=== PATIENT | female | born 1955 | race African-American/Black ===

== ENCOUNTER → 2016-12-17 | Outpatient (CLI) | payer BC ==
[~2016-12-17] MED LIST: ATEN25TA PO; ATOR20TA PO; CITA20TA5 PO; LISI1TAB3 PO; MIRT15TA4 PO; OMEP-110 PO; ONDA4TAB10 PO; TRAM-47 PO
== END | disposition home or self-care (01) ==
LOC: CFH 10:02
PROVIDERS: ATTEND Family Medicine
DX: Z12.31 Encounter for screening mammogram for malignant neoplasm of breast (principal)
CPT/HCPCS: G0202

== ENCOUNTER → 2017-12-18 | Outpatient (CLI) | payer BC ==
[~2017-12-18] MED LIST changes: -CITA20TA5 PO; +CITA20TA6 PO
== END | disposition home or self-care (01) ==
LOC: CFH 11:57
PROVIDERS: ATTEND Family Medicine
DX: Z12.31 Encounter for screening mammogram for malignant neoplasm of breast (principal)
CPT/HCPCS: 77063; 77067

== ENCOUNTER 2017-12-31 16:57 | Observation (INO) | payer BC ==
[~2017-12-31] VITALS: Ht 162.6 cm; Wt 80.4 kg
[2017-12-31] MEDS ORDERED: ASPIRIN 81 MG TABLET CHEW ONE (17:24)
[2017-12-31] MEDS ORDERED: ASPIRIN 81 MG TABLET CHEW PO ONE (17:30)
[2017-12-31] MEDS ORDERED: SODIUM CHLORIDE FLUSH 10ML SYR IVF ONE (17:30)
[2017-12-31] MEDS ORDERED: METF500T27 PO (17:44)
[2017-12-31 17:50] LABS: CHLORIDE 106 mmol/L (98-107)
[2017-12-31 17:56] LABS: MEAN CORPUSCULAR HEMOGLOBIN 30.2 pg (27.0-34.8); MEAN CORPUSCULAR HGB CONC 32.8 g/dL (32.4-35.8); MEAN CORPUSCULAR VOLUME 92.1 fL (80-100); MEAN PLATELET VOLUME 8.1 fL (7.4-10.4); PLATELET COUNT 310 x10^3/uL (130-400); RED CELL DISTRIBUTION WIDTH 14.2 % (9.6-15.2)
[2017-12-31 17:58] LABS: MD YES
[2017-12-31 17:59] LABS: ALANINE AMINOTRANSFERASE 22 U/L (12-78); ALKALINE PHOSPHATASE 92 U/L (45-117); ANION GAP 10 mmol/L (5-15); BILIRUBIN,TOTAL 0.4 mg/dL (0.2-1.0); CALCIUM 9.7 mg/dL (8.5-10.1); CREATININE 1.15 mg/dL (0.55-1.02); TOTAL PROTEIN 8.2 g/dL (6.4-8.2); TROPONIN I < 0.015 ng/mL (0.000-0.045)
[2017-12-31 18:03] LABS: <PLATELET ESTIMATE> ADEQUATE; <PLT MORPHOLOGY> NORMAL PLT MORPH; <RBC MORPHOLOGY> NORMAL; EOS#(MANUAL) 0.07 x10^3/uL (0.0-0.4); EOS% (MANUAL) 1 % (1-7); LYMPH#(MANUAL) 2.07 x10^3/uL (1-3.4); LYMPHS% (MANUAL) 28 % (22-44); MONOS#(MANUAL) 0.52 x10^3/uL (0.3-2.7); MONOS% (MANUAL) 7 % (2-9); SEG#(MANUAL) 4.74 x10^3/uL (1.8-6.8); SEGS% (MANUAL) 64 % (42-75)
[2017-12-31] MEDS ORDERED: MORPHINE SULFATE 4 MG/ML, 1ML ONE (19:46)
[2017-12-31] MEDS ORDERED: ONDANSETRON ODT 4 MG ONE (19:46)
[2017-12-31] MEDS ORDERED: MORPHINE SULFATE 4 MG/ML, 1ML IVPush ONE (20:00)
[2017-12-31] MEDS ORDERED: ONDANSETRON ODT 4 MG PO ONE (20:00)
[2017-12-31] MEDS ORDERED: OMNIPAQUE 350 MG/ML, 100ML BOTTLE ONE (20:09)
[2017-12-31] MEDS ORDERED: SODIUM CHLORIDE 0.9% 1,000 ML IV SCH (21:48)
[2017-12-31] MEDS ORDERED: DOCUSATE 100 MG CAPSULE PO PRN (22:00)
[2017-12-31] MEDS ORDERED: LABETALOL 5MG/ML, 20ML IVPush PRN (22:00)
[2017-12-31] MEDS ORDERED: hydrALAzine 20 MG/ML, 1ML IVPush PRN (22:00)
[2017-12-31] MEDS ORDERED: POLYETHYLENE GLYCOL 17 GM PACKET PO PRN (22:00)
[2017-12-31] MEDS ORDERED: NITROGLYCERIN 0.4 MG BOTTLE (25 TABS) SL PRN (22:00)
[2017-12-31] MEDS ORDERED: HYDROcodone/APAP 5/325 TABLET PO PRN (22:00)
[2017-12-31] MEDS ORDERED: ONDANSETRON ODT 4 MG PO PRN (22:00)
[2017-12-31] MEDS ORDERED: morphine SULFATE 10 MG/ML, 1ML IVPush PRN (22:00)
[2017-12-31] MEDS ORDERED: ONDANSETRON 2MG/ML, 2ML IVPush PRN (22:00)
[2017-12-31] MEDS ORDERED: BISACODYL 10 MG SUPP PR PRN (22:00)
[2017-12-31] MEDS ORDERED: PROMETHAZINE 25 MG/ML, 1ML IM PRN (22:00)
[2017-12-31] MEDS ORDERED: POTASSIUM CHLORIDE 20 MEQ TAB.ER.PRT PO ONE (22:30)
[2017-12-31 22:38] VITALS: BP 116/69
[2017-12-31] MEDS: HEPARIN 5,000 UNITS/ML, 1ML SQ SCH (23:09)
[2018-01-01 01:05] VITALS: BP 114/71
[2018-01-01 02:18] LABS: BASOPHILS # (AUTO) 0.04 x10^3/uL (0-0.1); BASOPHILS % (AUTO) 1 % (0-1); EOSINOPHILS # (AUTO) 0.11 x10^3/uL (0-0.4); EOSINOPHILS % (AUTO) 2 % (1-7); LYMPHOCYTES % (AUTO) 39 % (22-44); MD NO; MEAN CORPUSCULAR HEMOGLOBIN 30.9 pg (27.0-34.8); MEAN CORPUSCULAR VOLUME 93.5 fL (80-100); MEAN PLATELET VOLUME 7.9 fL (7.4-10.4); MONOCYTES # (AUTO) 0.38 x10^3/uL (0.2-0.8); MONOCYTES % (AUTO) 7 % (2-9); NEUTROPHILS # (AUTO) 2.78 x10^3/uL (1.8-6.8); NEUTROPHILS % (AUTO) 51 % (42-75); PLATELET COUNT 300 x10^3/uL (130-400); RED BLOOD COUNT 3.68 x10^6/uL (3.82-5.3); RED CELL DISTRIBUTION WIDTH 13.9 % (9.6-15.2)
[2018-01-01 02:30] LABS: ALANINE AMINOTRANSFERASE 18 U/L (12-78); ALBUMIN 3.4 g/dL (3.4-5.0); ANION GAP 9 mmol/L (5-15); CALCIUM 8.8 mg/dL (8.5-10.1); CHLORIDE 104 mmol/L (98-107); CREATININE 1.03 mg/dL (0.55-1.02)
[2018-01-01 02:32] LABS: TROPONIN I < 0.015 ng/mL (0.000-0.045)
[2018-01-01 02:33] LABS: ALKALINE PHOSPHATASE 85 U/L (45-117); BILIRUBIN,TOTAL 0.4 mg/dL (0.2-1.0); TOTAL PROTEIN 7.1 g/dL (6.4-8.2)
[2018-01-01 02:39] LABS: FREE T4 (FREE THYROXINE) 0.88 ng/dL (0.76-1.46); THYROID STIMULATING HORMONE 1.2 mIU/L (0.358-3.740)
[2018-01-01 02:43] LABS: HEMOGLOBIN A1C 5.8 % (4.2-6.3)
[2018-01-01] MEDS: ASPIRIN 325 MG TABLET EC PO SCH (05:57)
[2018-01-01] MEDS: HEPARIN 5,000 UNITS/ML, 1ML SQ SCH ×3 (05:57→21:46)
[2018-01-01 06:52] LABS: MICROSCOPIC NOT IND
[2018-01-01 06:59] VITALS: BP 110/63
[2018-01-01 07:05] LABS: CULTURE INDICATED? NO
[2018-01-01 08:35] LABS: TROPONIN I < 0.015 ng/mL (0.000-0.045)
[2018-01-01 08:43] VITALS: BP 117/69
[2018-01-01] MEDS: LISINOPRIL 10 MG TABLET PO SCH (08:45)
[2018-01-01] MEDS: HYDROCHLOROTHIAZIDE 12.5 MG CAPSULE PO SCH (08:46)
[2018-01-01] MEDS: INSULIN LISPRO 100 UNITS/ML, PEN SQ-INSULIN SCH ×4 (08:47→21:45)
[2018-01-01] MEDS ORDERED: OMEPRAZOLE 20 MG CAPSULE.DR PO SCH (09:00)
[2018-01-01] MEDS ORDERED: MAALOX/HYOSCYAMINE/LIDOCAINE 45 ML BTL PO PRN (12:00)
[2018-01-01 12:26] VITALS: BP 108/68
[2018-01-01] MEDS: ACETAMINOPHEN 325 MG TABLET PO PRN ×2 (17:47→21:54)
[2018-01-01 20:41] VITALS: BP 98/65
[2018-01-01] MEDS ORDERED: ATORVASTATIN 20 MG TABLET PO SCH (21:00)
[2018-01-01] MEDS: OMEPRAZOLE 20 MG CAPSULE.DR PO SCH (21:45)
[2018-01-02 00:20] VITALS: BP 97/60
[2018-01-02 00:26] VITALS: BP 98/61
[2018-01-02 05:12] LABS: MEAN CORPUSCULAR HEMOGLOBIN 30.6 pg (27.0-34.8); MEAN CORPUSCULAR VOLUME 92.7 fL (80-100); MEAN PLATELET VOLUME 8.1 fL (7.4-10.4); PLATELET COUNT 304 x10^3/uL (130-400); RED BLOOD COUNT 3.72 x10^6/uL (3.82-5.3); RED CELL DISTRIBUTION WIDTH 14.2 % (9.6-15.2)
[2018-01-02 05:19] LABS: ANION GAP 7 mmol/L (5-15); CALCIUM 9.3 mg/dL (8.5-10.1); CHLORIDE 106 mmol/L (98-107); CHOLESTEROL, TOTAL 163 mg/dL (140-239); CREATININE 1.13 mg/dL (0.55-1.02); TRIGLYCERIDES 99 mg/dL (50-200); VLDL CHOLESTEROL 20 mg/dL (0-25)
[2018-01-02 05:21] LABS: CHOL/HDL RATIO 2.4; HDL CHOL % 41 % (28-40); HDL CHOLESTEROL (DIRECT) 67 mg/dL (40-60); LDL CHOLESTEROL,CALCULATED 76 mg/dL (54-169); LDL/HDL RATIO 1.1 (0.5-3.0)
[2018-01-02] MEDS: HEPARIN 5,000 UNITS/ML, 1ML SQ SCH (05:26)
[2018-01-02] MEDS: ASPIRIN 325 MG TABLET EC PO SCH (05:28)
[2018-01-02 05:49] LABS: BASOPHILS # (AUTO) 0.02 x10^3/uL (0-0.1); BASOPHILS % (AUTO) 1 % (0-1); EOSINOPHILS # (AUTO) 0.23 x10^3/uL (0-0.4); EOSINOPHILS % (AUTO) 5 % (1-7); LYMPHOCYTES # (AUTO) 1.91 x10^3/uL (1-3.4); LYMPHOCYTES % (AUTO) 40 % (22-44); MD SCAN; MONOCYTES # (AUTO) 0.38 x10^3/uL (0.2-0.8); MONOCYTES % (AUTO) 8 % (2-9); NEUTROPHILS # (AUTO) 2.29 x10^3/uL (1.8-6.8); NEUTROPHILS % (AUTO) 47 % (42-75)
[2018-01-02] MEDS: INSULIN LISPRO 100 UNITS/ML, PEN SQ-INSULIN SCH (07:00)
[2018-01-02 08:00] VITALS: BP 117/73
[2018-01-02] MEDS: LISINOPRIL 10 MG TABLET PO SCH (09:02)
[2018-01-02] MEDS: HYDROCHLOROTHIAZIDE 12.5 MG CAPSULE PO SCH (09:02)
[2018-01-02] MEDS: OMEPRAZOLE 20 MG CAPSULE.DR PO SCH (09:02)
[2018-01-02] MEDS ORDERED: OMEP-110 PO (10:15)
[2018-01-02] MEDS ORDERED: MAG355OR14 PO (10:15)
== END 2018-01-02 12:05 | disposition home or self-care (01) ==
LOC: ED 20:41 → INTOOBSV 20:42 → EDIP 20:42 → ED 20:58 → 5SO 22:23 → DCLOUNGE 01-02 11:52
PROVIDERS: ADMIT Internal Medicine; ATTEND Internal Medicine
DX: R07.89 Other chest pain (principal); I10 Essential (primary) hypertension; E11.9 Type 2 diabetes mellitus without complications; E87.6 Hypokalemia; E78.5 Hyperlipidemia, unspecified; E78.00 Pure hypercholesterolemia, unspecified; I25.10 Atherosclerotic heart disease of native coronary artery without angina pectoris; K21.9 Gastro-esophageal reflux disease without esophagitis; N17.9 Acute kidney failure, unspecified; Z83.3 Family history of diabetes mellitus
CPT/HCPCS: 36415; 71045; 71275; 78452; 80048; 80053; 80061; 81003; 82962; 83036; 83690; 83735; 84439; 84443; 84484; 85025; 85379; 86677; 93005; 93017; 96361; 96372; 96374; 99285; A9502; C9898; G0378; J1644; J1815; J7030; Q0162; Q9967

== ENCOUNTER → 2018-08-25 | Outpatient (CLI) | payer BC ==
[~2018-08-25] MED LIST changes: +MAG355OR14 PO; +METF500T27 PO
== END | disposition home or self-care (01) ==
LOC: CFH 08:05
PROVIDERS: ATTEND Family Medicine
DX: D25.1 Intramural leiomyoma of uterus (principal)
CPT/HCPCS: 76830

== ENCOUNTER → 2019-12-01 | Outpatient (CLI) | payer MEDICARE, BC ==
[~2019-12-01] MED LIST changes: +LISI1TAB23 PO; -LISI1TAB3 PO; +MIRT-34 PO; -MIRT15TA4 PO
== END | disposition home or self-care (01) ==
LOC: CFH 09:36
PROVIDERS: ATTEND Family Medicine
DX: Z12.31 Encounter for screening mammogram for malignant neoplasm of breast (principal); N95.8 Other specified menopausal and perimenopausal disorders; M85.80 Other specified disorders of bone density and structure, unspecified site
CPT/HCPCS: 77067; 77080

== ENCOUNTER 2020-09-14 09:31 | Emergency (ER) | payer MEDICARE ==
[~2020-09-14] VITALS: Ht 167.6 cm; Wt 71.4 kg
[~2020-09-14 09:31] MED LIST changes: +MIRT-14 PO; -MIRT-34 PO
[2020-09-14 09:57] VITALS: BP 125/78
--- NOTE | 2020-09-14 10:06 | NUR ---
PT REFUSED TO WAIT TO BE SEEN BY A PHYSICIAN. STATED THAT SHE WAS GOING TO [facility] FOR PAIN RELIEF.
== END 2020-09-14 10:08 | disposition left against medical advice (07) ==
LOC: ED 10:05
DX: K08.89 Other specified disorders of teeth and supporting structures (principal); Z53.21 Procedure and treatment not carried out due to patient leaving prior to being seen by health care provider

== ENCOUNTER 2020-09-23 12:09 | Emergency (ER) | payer MEDICARE ==
[~2020-09-23] VITALS: Ht 160 cm; Wt 70.4 kg
--- NOTE | 2020-09-23 12:57 | NUR ---
pt in with C/O right head pain that radiates to her right jaw, neck and back. pt states pain comes and goes and has been present x1 week. pt changed into hospital gown and connected to monitors.
[2020-09-23] MEDS ORDERED: DIPHENHYDRAMINE 50 MG/ML, 1ML IVPush ONE (13:30)
[2020-09-23] MEDS ORDERED: KETOROLAC 30 MG/1 ML IVPush ONE (13:30)
[2020-09-23] MEDS ORDERED: SODIUM CHLORIDE 0.9% 1,000ML IVBOLUS ONE (13:30)
[2020-09-23] MEDS ORDERED: SODIUM CHLORIDE FLUSH 10ML SYR IVF ONE (13:30)
[2020-09-23] MEDS ORDERED: METOCLOPRAMIDE 5 MG/ML, 2ML IVPush ONE (13:30)
[2020-09-23] MEDS ORDERED: METOCLOPRAMIDE 5 MG/ML, 2ML ONE (13:34)
[2020-09-23] MEDS ORDERED: KETOROLAC 30 MG/1 ML ONE (13:34)
[2020-09-23] MEDS ORDERED: DIPHENHYDRAMINE 50 MG/ML, 1ML ONE (13:34)
--- NOTE | 2020-09-23 13:51 | NUR ---
BREAK RN: IV STARTED, PT MEDICATED FOR 5/10 HEAD PAIN. IV INFUSING ORDERED. [facility]
[2020-09-23] MEDS ORDERED: DEXAMETHASONE 4 MG/ML, 5ML ONE (15:23)
[2020-09-23] MEDS ORDERED: OXYcodone/APAP 5/325MG TABLET ONE (15:24)
[2020-09-23] MEDS ORDERED: OXYcodone/APAP 5/325MG TABLET PO ONE (15:30)
[2020-09-23] MEDS ORDERED: DEXAMETHASONE 4 MG/ML, 1ML IVPush ONE (15:30)
--- NOTE | 2020-09-23 15:30 | NUR ---
MEDICATED PER EMAR
[2020-09-23 15:48] VITALS: BP 132/84
--- NOTE | 2020-09-23 15:49 | NUR ---
Patient/Caregiver given discharge instructions and they have confirmed that they understand the instructions. Patient ambulatory with steady gait. NAD, all questions answered appropriately, denies additional needs at this time. No personal belongings left in room after discharge.
== END 2020-09-23 15:50 | disposition home or self-care (01) ==
LOC: ED 13:02
DX: G43.C0 Periodic headache syndromes in child or adult, not intractable (principal); R94.31 Abnormal electrocardiogram [ECG] [EKG]; K21.9 Gastro-esophageal reflux disease without esophagitis; I10 Essential (primary) hypertension; E78.00 Pure hypercholesterolemia, unspecified; G43.909 Migraine, unspecified, not intractable, without status migrainosus
CPT/HCPCS: 70450; 93005; 96361; 96374; 96375; 99284; J1100; J1200; J1885; J2765; J7030

== ENCOUNTER 2020-12-02 08:24 | Outpatient (CLI) | payer MEDICARE | END 2020-12-02 23:59 | disposition home or self-care (01) | LOC: CFH 08:24 | DX: Z12.31 Encounter for screening mammogram for malignant neoplasm of breast (principal) | CPT/HCPCS: 77063; 77067 ==